=== PATIENT | female | born 1950 | race Hispanic/Latino ===

== ENCOUNTER 2016-11-29 12:18 | Outpatient (CLI) | payer MEDICAID ==
[2016-11-29 12:43] LABS: Hematocrit 41.2 % (30.3-42.9); Mean Corpuscular HGB Conc 34 % (30-34); Mean Corpuscular Hemoglobin 31 pg (28-32); Mean Corpuscular Volume 90 fl (79-97); Platelet Count 286 K/mm3 (140-440); Red Blood Count 4.57 M/mm3 (3.65-5.03); Red Cell Distribution Width 15.1 % (13.2-15.2); White Blood Count 10.3 K/mm3 (4.5-11.0)
[2016-11-29 13:00] LABS: Alanine Aminotransferase 7 units/L (7-56); Albumin 4.5 g/dL (3.9-5); Albumin/Globulin Ratio 1.7 %; Alkaline Phosphatase 86 units/L (35-129); Anion Gap 15 mmol/L; BUN/Creatinine Ratio 21.42; Blood Urea Nitrogen 15 mg/dL (7-17); Calcium 9.4 mg/dL (8.4-10.2); Carbon Dioxide 27 mmol/L (22-30); Chloride 100.6 mmol/L (98-107); Glucose 83 mg/dL (65-100); Sodium 138 mmol/L (137-145); Total Protein 7.2 g/dL (6.3-8.2)
--- NOTE | 2016-11-29 14:16 | Cat Scan Report ---
CT scan of chest with IV contrast: History: COPD, history of pulmonary nodule. Findings: No endobronchial or mediastinal mass. No mediastinal, hilar or axillary adenopathy. No pleural pericardial effusion. There is circumscribed 8 mm nodular noted at the right lower lobe series 3 image 96. Multiple apical bulla and scarring. Scarring right pleural base. No consolidation. Impression: Noncalcified nodule right lung. Multiple apical bulla with scarring. No consolidation. Findings: The
== END 2016-11-29 12:19 | disposition home or self-care (01) ==
LOC: CT 12:18
PROVIDERS: ATTEND Internal Medicine
DX: J44.9 Chronic obstructive pulmonary disease, unspecified (principal); R91.1 Solitary pulmonary nodule; J98.4 Other disorders of lung
CPT/HCPCS: 36415; 71260; 80053; 85027; Q9967

== ENCOUNTER 2017-10-05 11:12 | Outpatient (CLI) | payer MEDICARE ==
[2017-10-05 11:45] LABS: Hematocrit 41.4 % (30.3-42.9); Hemoglobin 14.3 gm/dl (10.1-14.3); Mean Corpuscular HGB Conc 34 % (30-34); Mean Corpuscular Hemoglobin 31 pg (28-32); Mean Corpuscular Volume 91 fl (79-97); Platelet Count 310 K/mm3 (140-440); Red Blood Count 4.57 M/mm3 (3.65-5.03); Red Cell Distribution Width 13.7 % (13.2-15.2)
[2017-10-05 12:25] LABS: Alanine Aminotransferase 7 units/L (7-56); BUN/Creatinine Ratio 12; Blood Urea Nitrogen 11 mg/dL (7-17); Calcium 8.9 mg/dL (8.4-10.2); Hemolysis Index 25
--- NOTE | 2017-10-05 16:17 | Cat Scan Report ---
FINAL REPORT EXAM: CT CHEST W CON HISTORY: Pulmonary NODULE. TECHNIQUE: CT of chest with IV contrast. Coronal and sagittal reconstructed images provided. PRIORS: None currently available. FINDINGS: 3.7 x 7.5 mm pleural-based solid nodule right upper lobe series 3: 64. 7.1 x 7.8 mm solid nodule medial right middle lobe series 3:188. 6.2 x 5.5 mm subpleural solid nodule with irregular margins right lower lobe series 3:190. Moderate to severe emphysema. Mild scarring both lungs. No pneumothorax. No distinct consolidation. No effusion. Series 3:170 demonstrates some mucous plugging of the right lower lobe bronchus without atelectasis. Focal subsegmental atelectasis noted within the right suprahilar region series 3:16. Mild aortic atherosclerotic disease. Mild mural thrombus. No aneurysm. No dissection. Major branch vessels are unremarkable. Main pulmonary artery is unremarkable. No pulmonary embolus. Heart size is within normal limits. No pericardial effusion. Images of the thyroid are unremarkable. Axillary regions are unremarkable. A few prominent subcentimeter mediastinal lymph nodes are nonspecific. Possibly reactive. No mass. Hilar regions are unremarkable. No mass or adenopathy. Images of the esophagus are unremarkable. Series 3:280 demonstrates left posterior abdominal wall defect which could be related to ventral hernia or postsurgical changes. Cortical thinning or scarring noted in both kidneys. No suspicious osseous lesions on this limited examination of the skeleton. Metastatic disease better evaluated with bone scan. Degenerative changes are present in the spine. IMPRESSION: Pulmonary nodules. Emphysema. Mildly prominent subcentimeter mediastinal lymph nodes. Nonspecific. Possibly reactive. Left posterior abdominal wall defect which could be related to ventral hernia or postsurgical changes. 2017 FLEISCHNER GUIDELINES FOR PULMONARY NODULE MANAGEMENT: SOLID MULTIPLE NODULES: LOW risk patient (no significant smoking history, no history of malignancy, and a normal immune system) nodules: < 6 mm - No routine follow up. 6-8 mm - CT at 3-6 months. Then, consider CT at 18-24 months. > 8 mm - CT at 3-6 months. Then, consider CT at 18-24 months. HIGH risk patient, follow-up noncontrast < 6 mm - Optional CT at 12 months. 6-8 mm - CT at 3-6 months. Then, CT at 18-24 months. > 8 [address] - [address] at 3-6 months. Then, CT at 18-24 months. Low risk patients - minimal or absent history of smoking and or other known risk factors High risk patients - history of smoking or of other known risk factors
--- NOTE | 2017-10-05 19:14 | XRay Report ---
FINAL REPORT EXAM: XR CHEST ROUTINE 2V HISTORY: FOLLOW UP ON PULMONARY NODULE TECHNIQUE: Two views of the chest Comparison: CT chest same day FINDINGS: Chest x-ray earlier same day demonstrated pulmonary emphysema and 3.7 x 7.5 millimeter pleural-based solid nodule right upper lobe, 7.1 x 7.8 solid nodule medial right middle lobe, 6.2 x 5.5 millimeter subpleural nodule with irregular margins right lower lobe. On the plain film, these nodules are too small to resolve. There is pulmonary emphysema. Heart size is normal. There are no infiltrates. No effusions. Imaged axial skeleton is unremarkable. IMPRESSION: Three pulmonary nodules seen on CT chest are too small to resolve on plain film. Pulmonary emphysema. These pulmonary nodules will require follow-up with CT per the Fleischner recommendations as stated in the CT report.
== END 2017-10-05 11:13 | disposition home or self-care (01) ==
LOC: CT 11:12
PROVIDERS: ATTEND Internal Medicine
DX: J44.9 Chronic obstructive pulmonary disease, unspecified (principal); J98.4 Other disorders of lung; J98.11 Atelectasis; I70.0 Atherosclerosis of aorta; R91.8 Other nonspecific abnormal finding of lung field; M47.894 Other spondylosis, thoracic region
CPT/HCPCS: 36415; 71046; 71260; 80053; 85027; Q9967

== ENCOUNTER 2017-11-30 08:02 | Outpatient (CLI) | payer MEDICARE ==
--- NOTE | 2017-11-30 16:18 | PET Report ---
PET/CT:11/30/17 08:02:00 CLINICAL: Pulmonary nodule. RADIOPHARMACEUTICAL: 14.0mCi F18-FDG. COMPARISON: CT chest 10/05/17 and 11/29/16 TECHNIQUE- Following intravenous injection of F-18 FDG and an approximately 60 minute uptake period, CT and PET images from the mid skull to the upper thighs were acquired with the patient in the fasted state. No contrast was administered. The CT protocol used for this PET CT study is designed for attenuation correction and anatomic localization of PET abnormalities. This administration specialist CT is not desired to produce and cannot replace, [id number] diagnostic CT scans with specific imaging protocols for different body parts and indications. Plasma glucose at the time of this test: 117g/dl. The standardized uptake values (SUV) are normalized to patient body weight and indicate the highest activity concentration (SUV max) in a given disease site. FINDINGS: Brain--Physiologic FDG uptake in the visualized regions of the brain. Neck--Physiologic FDG uptake . Chest--Physiologic FDG uptake in mediastinal blood pool and myocardium. Lungs--No abnormal uptake. An irregular left upper lobe pleural-based FDG avid mass is new compared to previous CT exams and measures 2.2 x 2.0 cm image 59, series 1 with SUV 3.9. Noncalcified non-FDG avid right upper lobe, right middle lobe and right lower lobe lung nodules are unchanged compared to prior exams. The largest is in the right middle lobe series 1, image 111 and measures 8 mm with SUV 0.7. Moderate multilobar emphysema. Pleura/pericardium--No abnormal uptake. Thoracic nodes--No abnormal uptake. Hepatobiliary--No abnormal uptake. Liver background SUV mean, as a reference for comparing FDG studies, is 2.0 . No liver mass. Spleen--No abnormal uptake. Pancreas--No abnormal uptake. Adrenal Glands--No abnormal uptake. Kidneys/Ureters/Bladder--No abnormal uptake. The left kidney is smaller than the right. The renal collecting systems are nondilated. Abdominopelvic Nodes--No abnormal uptake. Bowel/Peritoneum/Mesentery--No abnormal uptake. Pelvic organs--No abnormal uptake. Bones/Soft Tissues--No abnormal uptake. No suspicious bone lesion. IMPRESSION- 1. A new 2 x 2 cm left upper lobe FDG avid pleural-based mass. Its rapid development since the 10/05/17 CT suggests that it may be an inflammatory rather than neoplastic mass. Although it has irregular margins, it is not spiculated. 2. Three stable noncalcified non-FDG avid right lung nodules. 3. No suspicion of primary tumor below the diaphragm. 4. No evidence of hepatic, matias or or skeletal metastasis.
== END 2017-11-30 08:03 | disposition home or self-care (01) ==
LOC: PET 08:02
PROVIDERS: ATTEND Internal Medicine
DX: J43.9 Emphysema, unspecified (principal); J98.4 Other disorders of lung; R91.8 Other nonspecific abnormal finding of lung field
CPT/HCPCS: 78815; 82962; A9552